=== PATIENT | female | born 1995 | race Caucasian/White ===

== ENCOUNTER 2018-09-24 09:02 | Day surgery (SDC) | payer OTHER ==
[~2018-09-24 09:02] MED LIST: Dexamethasone 4 MG/ML 5 ML MDV ONE; Glycopyrrolate 0.2 MG/ML SDV ONE; Lactated Ringers 1,000 ML IV SCH; Midazolam 1 MG/ML 2 ML SDV ONE; Neostigmine Methylsulfate 1 MG/ML 5 ML Syringe ONE; Ondansetron 4 MG/2 ML SDV ONE; Propofol 200 MG/20 ML SDV ONE; Rocuronium 100 MG/10 ML Syringe ONE; fentaNYL 250 MCG/5 ML SDV ONE
--- NOTE | 2018-09-24 10:08 | PCM.PREANE ---
Preanesthetic Assessment - Anesthesia/Transfusion/Family Hx Anesthesia History: Prior Anesthesia Without Reaction Family History of Anesthesia Reaction: No Transfusion History: No Prior Transfusion(s) Intubation History: Unknown - Review of Systems General: No Symptoms Pulmonary: No Symptoms Cardiovascular: No Symptoms Gastrointestinal: No Symptoms Neurological: No Symptoms Other: Reports: None - Physical Assessment Height: 5 ft 2 in Weight: 49.442 kg ASA Class: 2 Mental Status: Alert & Oriented x3 Airway Class: Mallampati = 1 Dentition: Reports: Dentures (upper) Thyro-Mental Finger Breadths: 3 Mouth Opening Finger Breadths: 3 ROM/Head Extension: Full Lungs: Clear to Auscultation, Normal Respiratory Effort Cardiovascular: Regular Rate, Regular Rhythm - Lab Values: Laboratory Last Values WBC 5.65 K/uL (4.0-11.0) 09/24/18 09:32 RBC 4.67 M/uL (4.30-5.90) 09/24/18 09:32 Hgb 14.1 g/dL (12.0-16.0) 09/24/18 09:32 Hct 42.4 % (36.0-46.0) 09/24/18 09:32 MCV 90.8 fL (80.0-98.0) 09/24/18 09:32 MCH 30.2 pg (27.0-32.0) 09/24/18 09:32 MCHC 33.3 g/dL (31.0-37.0) 09/24/18 09:32 RDW Std Deviation 42.9 fl (28.0-62.0) 09/24/18 09:32 RDW Coeff of Rosa 13 % (11.0-15.0) 09/24/18 09:32 Plt Count 256 K/uL (150-400) 09/24/18 09:32 MPV 12.00 fL (7.40-12.00) 09/24/18 09:32 Nucleated RBC % 0.0 /100WBC 09/24/18 09:32 Nucleated RBCs # 0 K/uL 09/24/18 09:32 Urine HCG, Qual NEGATIVE (NEGATIVE) 09/24/18 09:16 - Allergies Allergies/Adverse Reactions: Allergies Allergy/AdvReac Type Severity Reaction Status Date / Time No Known Allergies Allergy Verified 09/21/18 12:54 - Blood Blood Available: No - Anesthesia Plan Pre-Op Medication Ordered: None - Acknowledgements Anesthesia Type Planned: MAC Pt an Appropriate Candidate for the Planned Anesthesia: Yes Alternatives and Risks of Anesthesia Discussed w Pt/Guardian: Yes Pt/Guardian Understands and Agrees with Anesthesia Plan: Yes PreAnesthesia Questionnaire HEENT History: Reports: Allergic Rhinitis, Other (See Below) Other HEENT History: wears glasses, top denture Cardiovascular History: Reports: None Respiratory History: Reports: None Gastrointestinal History: Reports: None Genitourinary History: Reports: None [employer] SERVICE History: Reports: Other (See Below) (h/o ovarian cyst) Musculoskeletal History: Reports: None Neurological History: Reports: None Psychiatric History: Reports: None Endocrine/Metabolic History: Reports: None Hematologic History: Reports: None Immunologic History: Reports: None Oncologic (Cancer) History: Reports: None Dermatologic History: Reports: None - Past Surgical History Head Surgeries/Procedures: Reports: None HEENT Surgical History: Reports: Oral Surgery Cardiovascular Surgical History: Reports: None Respiratory Surgical History: Reports: None GI Surgical History: Reports: None Female Surgical History: Reports: None Endocrine Surgical History: Reports: None Neurological Surgical History: Reports: None Musculoskeletal Surgical History: Reports: None Oncologic Surgical History: Reports: None Dermatological Surgical History: Reports: None - SUBSTANCE USE Smoking Status *Q: Current Some Day Smoker Tobacco Use Within Last Twelve Months: Cigarettes Recreational Drug Use History: No - HOME MEDS Home Medications: Home Meds Cetirizine [ZyrTEC] 10 mg PO ASDIRECTED PRN 09/21/18 [History] PNV95/Ferrous Fumarate/FA [ Vitamin Tablet] 1 tab PO DAILY 09/21/18 [ History] - CURRENT (IN HOUSE) MEDS Current Meds: Current Medications Lactated Ringer's (Ringers, Lactated) 1,000 mls @ 125 mls/hr IV ASDIRECTED [facility] Discontinued Medications Dexamethasone (Dexamethasone) Confirm Administered Dose 20 mg .ROUTE .STK-MED ONE Stop: 09/24/18 07:38 Fentanyl (Sublimaze) Confirm Administered Dose 250 mcg .ROUTE .STK-MED ONE Stop: 09/24/18 07:37 Glycopyrrolate (Robinul) Confirm Administered Dose 0.4 mg .ROUTE .STK-MED ONE Stop: 09/24/18 07:39 Acetaminophen (Ofirmev) Confirm Administered Dose 100 mls @ as directed IV .STK- MED ONE Stop: 09/24/18 07:28 Lidocaine HCl (Xylocaine-Mpf 1%) Confirm Administered Dose 5 mls @ as directed .ROUTE .STK-MED ONE Stop: 09/24/18 07:38 Midazolam HCl (Versed 1 Mg/Ml) Confirm Administered Dose 2 mg .ROUTE .STK-MED ONE Stop: 09/24/18 07:37 Neostigmine Methylsulfate (Neostigmine) Confirm Administered Dose 5 mg .ROUTE .STK-MED ONE Stop: 09/24/18 07:39 Ondansetron HCl (Zofran) Confirm Administered Dose 4 mg .ROUTE .STK-MED ONE Stop: 09/24/18 07:38 Propofol (Diprivan 20 Ml) Confirm Administered Dose 200 mg .ROUTE .STK-MED ONE Stop: 09/24/18 07:37 Rocuronium [place] (Zemuron) Confirm Administered Dose 100 mg .ROUTE .STK-MED ONE Stop: 09/24/18 07:39 Succinylcholine Chloride (Succinylcholine Chloride) Confirm Administered Dose 200 mg .ROUTE .STK-MED ONE Stop: 09/24/18 07:39
[2018-09-24] MEDS ORDERED: Sugammadex Sodium 200 MG/2 ML VIAL ONE (10:46)
[2018-09-24] MEDS ORDERED: Octyl 2-Cyanoacrylate 1 Tube ONE (11:10)
[2018-09-24] MEDS ORDERED: Fluorescein 5 ML Vial ONE (11:10)
[2018-09-24] MEDS ORDERED: Furosemide 40 MG/4 ML VIAL ONE (11:51)
[2018-09-24] MEDS ORDERED: fentaNYL 100 MCG/2 ML SDV ONE (12:18)
[2018-09-24] MEDS ORDERED: Ketorolac 30 MG/ML SDV ONE (12:25)
[2018-09-24] MEDS: fentaNYL 100 MCG/2 ML SDV IVPUSH PRN ×2 (12:40→12:46)
--- NOTE | 2018-09-24 13:00 | PCM.OPNOTE ---
- General Post-Op/Procedure Note Date of Surgery/Procedure: 09/24/18 Operative Procedure(s): dignostic Laparascopy bilat salpengectomy Post-Op Diagnosis: Same Anesthesia Technique: General ET Tube Primary Surgeon: Beni Givens EBL in mLs: 50 Complications: None Condition: Good Free Text/Narrative:: Intake & Output 09/23/18 09/24/18 09/24/18 22:59 06:59 14:59 Intake Total 1400 Balance 1400
--- NOTE | 2018-09-24 13:02 | PCM.DCSUM1 ---
Discharge Summary - Hospital Course Diagnosis: Stroke: No - Discharge Data Discharge Date: 09/24/18 Discharge Disposition: Home, Self-Care 01 Condition: Good - Patient Summary/Data Operative Procedure(s) Performed: dignostic Laparascopy bilat salpengectomy - Patient Instructions Diet: Usual Diet as Tolerated Activity: As Tolerated Driving: Do Not Drive Showering/Bathing: May Shower Notify Provider of: Fever, Increased Pain, Nausea and/or Vomiting - Discharge Plan Home Medications: Home Meds Cetirizine [ZyrTEC] 10 mg PO ASDIRECTED PRN 09/21/18 [History] PNV95/Ferrous Fumarate/FA [ Vitamin Tablet] 1 tab PO DAILY 09/21/18 [ History] - Discharge Summary/Plan Comment DC Time >30 min.: Yes - General Info Date of Service: 09/24/18 Functional Status: Reports: Pain Controlled - Review of Systems General: Reports: No Symptoms HEENT: Reports: No Symptoms Pulmonary: Reports: No Symptoms Cardiovascular: Reports: No Symptoms Gastrointestinal: Reports: No Symptoms Genitourinary: Reports: No Symptoms Musculoskeletal: Reports: No Symptoms Skin: Reports: No Symptoms Neurological: Reports: No Symptoms Psychiatric: Reports: No Symptoms - Patient Data Vitals - Most Recent: Last Vital Signs Temp 36.1 C 09/24/18 12:19 Pulse 58 L 09/24/18 12:56 Resp 13 09/24/18 12:56 BP 98/50 L 09/24/18 12:56 Pulse Ox 98 09/24/18 12:56 Weight - Most Recent: 49.442 kg I&O - Last 24 hours: Intake & Output 09/23/18 09/24/18 09/24/18 22:59 06:59 14:59 Intake Total 1400 Balance 1400 Lab Results - Last 24 hrs: Laboratory Results - last 24 hr 09/24/18 09/24/18 Range/Units 09:16 09:32 WBC 5.65 (4.0-11.0) K/uL RBC 4.67 (4.30-5.90) M/uL Hgb 14.1 (12.0-16.0) g/dL Hct 42.4 (36.0-46.0) % MCV 90.8 (80.0-98.0) fL MCH 30.2 (27.0-32.0) pg MCHC 33.3 (31.0-37.0) g/dL RDW Std Deviation 42.9 (28.0-62.0) fl RDW Coeff of Rosa 13 (11.0-15.0) % Plt Count 256 (150-400) K/uL MPV 12.00 (7.40-12.00) fL Nucleated RBC % 0.0 /100WBC Nucleated RBCs # 0 K/uL Urine HCG, Qual NEGATIVE (NEGATIVE) Med Orders - Current: Current Medications Fentanyl (Sublimaze) 50 mcg IVPUSH Q5M PRN PRN Reason: Pain (severe 7-10) Stop: 09/24/18 14:00 Last Admin: 09/24/18 12:46 Dose: 50 mcg Lactated Ringer's (Ringers, Lactated) 1,000 mls @ 125 mls/hr IV ASDIRECTED [facility] Last Admin: 09/24/18 09:50 Dose: 125 mls/hr Discontinued Medications Dexamethasone (Dexamethasone) Confirm Administered Dose 20 mg .ROUTE .STK-MED ONE Stop: 09/24/18 07:38 Fentanyl (Sublimaze) Confirm Administered Dose 250 mcg .ROUTE .STK-MED ONE Stop: 09/24/18 07:37 Fentanyl (Sublimaze) Confirm Administered Dose 100 mcg .ROUTE .STK-MED ONE Stop: 09/24/18 12:19 Fluorescein Sodium (Ak-Fluor) Confirm Administered Dose 5 ml .ROUTE .STK-MED ONE Stop: 09/24/18 11:11 Furosemide (Lasix) Confirm Administered Dose 40 mg .ROUTE .STK-MED ONE Stop: 09/24/18 11:52 Glycopyrrolate (Robinul) Confirm Administered Dose 0.4 mg .ROUTE .STK-MED ONE Stop: 09/24/18 07:39 Acetaminophen (Ofirmev) Confirm Administered Dose 100 mls @ as directed IV .STK- MED ONE Stop: 09/24/18 07:28 Lidocaine HCl (Xylocaine-Mpf 1%) Confirm Administered Dose 5 mls @ as directed .ROUTE .STK-MED ONE Stop: 09/24/18 07:38 Ketorolac Tromethamine (Toradol) Confirm Administered Dose 30 mg .ROUTE .STK- MED ONE Stop: 09/24/18 12:26 Midazolam HCl (Versed 1 Mg/Ml) Confirm Administered Dose 2 mg .ROUTE .STK-MED ONE Stop: 09/24/18 07:37 Neostigmine Methylsulfate (Neostigmine) Confirm Administered Dose 5 mg .ROUTE .STK-MED ONE Stop: 09/24/18 07:39 Octyl Cyanoacrylate (Dermabond Advance) Confirm Administered Dose 1 applic .ROUTE .STK-MED ONE Stop: 09/24/18 11:11 Ondansetron HCl (Zofran) Confirm Administered Dose 4 mg .ROUTE .STK-MED ONE Stop: 09/24/18 07:38 Propofol (Diprivan 20 Ml) Confirm Administered Dose 200 mg .ROUTE .STK-MED ONE Stop: 09/24/18 07:37 Rocuronium [place] (Zemuron) Confirm Administered Dose 100 mg .ROUTE .STK-MED ONE Stop: 09/24/18 07:39 Succinylcholine Chloride (Succinylcholine Chloride) Confirm Administered Dose 200 mg .ROUTE .STK-MED ONE Stop: 09/24/18 07:39 Sugammadex Sodium (Bridion) Confirm Administered Dose 200 mg .ROUTE .STK-MED ONE Stop: 09/24/18 10:47 - Exam General: Reports: Alert, Oriented HEENT: Reports: Pupils Equal, Pupils Reactive, EOMI, Mucous Membr. Moist/[place] Neck: Reports: Supple Lungs: Reports: Clear to Auscultation, Normal Respiratory Effort Cardiovascular: Reports: Regular Rate, Regular Rhythm GI/Abdominal Exam: Normal Bowel Sounds, Soft, Non-Tender, No Organomegaly, No Distention, No Abnormal Bruit, No Mass, Pelvis Stable (Female) Exam: Normal External Exam, Normal Speculum Exam, Normal Bimanual Exam Rectal (Female) Exam: Normal Exam, Normal Rectal Tone Back Exam: Reports: Normal Inspection, Full Range of Motion Extremities: Normal Inspection, Normal Range of Motion, Non-Tender, No Pedal Edema, Normal Capillary Refill Skin: Reports: Warm, Dry, Intact Wound/Incisions: Reports: Healing Well Neurological: Reports: No New Focal Deficit Psy/Mental Status: Reports: Alert, Normal Affect, Normal Mood
--- NOTE | 2018-09-24 13:24 | PCM48HPAN ---
Post Anesthesia Note - EVALUATION WITHIN 48HRS OF ANESTHETIC Vital Signs in Normal Range: Yes Patient Participated in Evaluation: Yes Respiratory Function Stable: Yes Airway Patent: Yes Cardiovascular Function Stable: Yes Hydration Status Stable: Yes Pain Control Satisfactory: Yes Nausea and Vomiting Control Satisfactory: Yes Mental Status Recovered: Yes Resp Rate: 13 - COMMENTS/OBSERVATIONS Free Text/Narrative:: No anesthesia problems
--- NOTE | 2018-09-24 17:36 | OR ---
SURGEON: Beni Givens MD DATE OF PROCEDURE: PREOPERATIVE DIAGNOSES: 1. Tubal occlusion. 2. Bilateral hydrosalpinx. POSTOPERATIVE DIAGNOSES: 1. Tubal occlusion. 2. Bilateral hydrosalpinx. OPERATION PERFORMED: Multiple puncture diagnostic laparoscopy, bilateral salpingectomy. PRIMARY SURGEON: Beni Givens MD. INDUSTRIAL G[employer] SERVICER: OR hilda. ANESTHESIA: General endotracheal intubation. ESTIMATED BLOOD LOSS: Less than 50 mL. COMPLICATIONS: None. INDICATION: This is a 23-year-old patient, nulliparous. She has previous history of pelvic inflammatory disease and bilateral tubal occlusion. She is scheduled to have IVF in November and based on the recommendation of her infertility doctor and IVF doctors, she was referred back to have bilateral salpingectomy. PROCEDURE IN DETAIL: The patient was brought to the OR, properly identified. After adequate level of anesthesia, the patient was placed in lithotomy position, prepped and draped in sterile fashion as usual. A short weighted speculum was placed in the vagina and then the Senseonicska manipulator placed in the uterus for manipulation. Straight catheter was used to enter the bladder. The operation shifted abdominally. Stab wound done beneath the umbilicus. The Veress needle was placed in the peritoneal cavity and that cavity insufflated with 6 L of carbon dioxide. A skin incision was done to accommodate 5 mm trocar and 5 mm scope through it. Inspection of the pelvic organs revealed the above-mentioned dictated finding. A 10/12 trocar was placed in the left iliac fossa and 5 mm trocar in the right iliac fossa. The operation started by identifying the tube, and after lysing the adhesion using Surya Harmonic scapula, the mesosalpinx was coagulated, transected, and the tubes amputated as close to the uterus as possible. Once this got accomplished, both tubes removed and inspection of the operative field showed no oozing, no bleeding, then the procedure is ended. Instrument and sponge count were correct. The patient tolerated the procedure well and went to recovery room in stable general condition. ZEENAT / BERYL /[id number]
== END 2018-09-24 13:45 | disposition home or self-care (01) ==
LOC: MW.SDS 09:02
PROVIDERS: ATTEND Obstetrics & Gynecology
DX: N97.1 Female infertility of tubal origin (principal); N70.11 Chronic salpingitis; N73.6 Female pelvic peritoneal adhesions (postinfective); Z87.891 Personal history of nicotine dependence; Z79.899 Other long term (current) drug therapy
CPT/HCPCS: 36415; 58700; 81025; 85027; A9270; J0131; J0330; J1100; J1885; J1940; J2001; J2250; J2405; J2704; J3010; J3490; J7120; 00840; 88305

== ENCOUNTER 2019-04-19 09:24 | Emergency (ER) | payer OTHER ==
--- NOTE | 2019-04-19 09:57 | EDM.PDOC ---
ED HPI GENERAL MEDICAL PROBLEM - General Chief Complaint: CERTIFIED GENETIC COUNSELOR Problem Stated Complaint: UNKNOWN WEEKS PREG W/SPOTTING Time Seen by Provider: 04/19/19 09:51 Source of Information: Reports: Patient History Limitations: Reports: No Limitations - History of Present Illness INITIAL COMMENTS - FREE TEXT/NARRATIVE: HISTORY AND PHYSICAL: History of present illness: Patient is a 23-year-old female who presents to the ED today with concern of spotting and lower abdominal pain in early . Patient states she had IVF a few weeks ago at the beginning of March and has had confirmed positive tests in [place] as well as confirmed positive hCG quant levels. Patient states she believes her last hCG quant level was around 8000 and this was about a week ago according to patient. Patient states she had an appointment this morning with Dr. Givens for her first routine appointment but was called by the clinic canceling this appointment. Patient states she went to the bathroom and had some clotting and bright red blood when she wiped. Patient states she has not had to wear a pad for bleeding but does have some bright red blood when she wipes. Patient states she is also having lower abdominal cramping. Patient denies any health history or any other symptoms or concerns. Patient denies fever, chills, chest pain, shortness of breath, or cough. Denies headache, neck stiff ness, change in vision, syncope, or near syncope. Denies nausea, vomiting, diarrhea, constipation, or dysuria. Has not noted any blood in urine or stool. Patient has been eating and drinking appropriately. Review of systems: As per history of present illness and below otherwise all systems reviewed and negative. Past medical history: As per history of present illness and as reviewed below otherwise noncontributory. Surgical history: As per history of present illness and as reviewed below otherwise noncontributory. Social history: See social history for further information Family history: As per history of present illness and as reviewed below otherwise noncontributory. Physical exam: General: Patient is alert, oriented, and in no acute distress. Patient sitting comfortably on exam table. HEENT: Atraumatic, normocephalic, pupils equal and reactive bilaterally, negative for conjunctival pallor or scleral icterus, mucous membranes moist, TMs normal bilaterally, throat clear, neck supple, nontender, trachea midline. No drooling or trismus noted. No meningeal signs. No hot potato voice noted. Lungs: Clear to auscultation, breath sounds equal bilaterally, chest nontender. Heart: S1S2, regular rate and rhythm without overt murmur Abdomen: Soft, nondistended, nontender. Negative for masses or hepatosplenomegaly. Negative for costovertebral tenderness. Pelvis: Stable nontender. Genitourinary: Deferred. Rectal: Deferred. Skin: Intact, warm, dry. No lesions or rashes noted. Extremities: Atraumatic, negative for cords or calf pain. Neurovascular unremarkable. Neuro: Awake, alert, oriented. Cranial nerves II through XII unremarkable. Cerebellum unremarkable. Motor and sensory unremarkable throughout. Exam nonfocal. Notes: Discussed importance for follow-up with an CERTIFIED GENETIC COUNSELOR women's health provider. Voices understanding and is agreeable to plan of care. Denies any further questions or concerns at this time. Diagnostics: UA, Uhcg, CBC,CMP, Blood type/Rh, TVUS, HcgQuant Therapeutics: None Prescription: None Impression: Threatened Plan: 1. Please start and/or continue to take your vitamin with folic acid once daily. 2. Pelvic rest until cleared by your OBGYN (no tampons, sex, etc...) 3. Tylenol as needed for pain management. This is safe to use in . 4. Follow up with your CERTIFIED GENETIC COUNSELOR as discussed. Return to the ED as needed and as discussed. Definitive disposition and diagnosis as appropriate pending reevaluation and review of above. - Related Data Allergies Allergy/AdvReac Type Severity Reaction Status Date / Time No Known Allergies Allergy Verified 04/19/19 09:50 Home Meds: Home Meds Cetirizine [ZyrTEC] 10 mg PO ASDIRECTED PRN 09/21/18 [History] Pnv No.95/Ferrous Fum/Folic AC [ Vitamin Tablet] 1 tab PO DAILY [History] Aspirin 81 mg PO ASDIRECTED 04/19/19 [History] Past Medical History HEENT History: Reports: Allergic Rhinitis, Other (See Below) Other HEENT History: wears glasses, top denture Cardiovascular History: Reports: None Respiratory History: Reports: None Gastrointestinal History: Reports: None Genitourinary History: Reports: None CERTIFIED GENETIC COUNSELOR History: Reports: Other (See Below) (h/o ovarian cyst) Musculoskeletal History: Reports: None Neurological History: Reports: None Psychiatric History: Reports: None Endocrine/Metabolic History: Reports: None Hematologic History: Reports: None Immunologic History: Reports: None Oncologic (Cancer) History: Reports: None Dermatologic History: Reports: None - Past Surgical History Head Surgeries/Procedures: Reports: None HEENT Surgical History: Reports: Oral Surgery Cardiovascular Surgical History: Reports: None Respiratory Surgical History: Reports: None GI Surgical History: Reports: None Female Surgical History: Reports: None Endocrine Surgical History: Reports: None Neurological Surgical History: Reports: None Musculoskeletal Surgical History: Reports: None Oncologic Surgical History: Reports: None Dermatological Surgical History: Reports: None ED ROS GENERAL - Review of Systems Review Of Systems: Comprehensive ROS is negative, except as noted in HPI. ED EXAM, GENERAL - Physical Exam Exam: See Below (see dictation) Course - Vital Signs Last Recorded V/S: Last Vital Signs Temp 97.3 F 04/19/19 09:52 Pulse 92 04/19/19 09:52 Resp 16 04/19/19 09:52 BP 106/73 04/19/19 09:52 Pulse Ox 99 04/19/19 09:52 - Orders/Labs/Meds Labs: Laboratory Tests 04/19/19 04/19/19 04/19/19 Range/Units 09:56 09:56 10:20 WBC 7.94 (4.0-11.0) K/uL RBC 4.43 (4.30-5.90) M/uL Hgb 13.5 (12.0-16.0) g/dL Hct 40.3 (36.0-46.0) % MCV 91.0 (80.0-98.0) fL MCH 30.5 (27.0-32.0) pg MCHC 33.5 (31.0-37.0) g/dL RDW Std Deviation 45.7 (28.0-62.0) fl RDW Coeff of Rosa 14 (11.0-15.0) % Plt Count 237 (150-400) K/uL MPV 12.20 H (7.40-12.00) fL Neut % (Auto) 64.8 (48.0-80.0) % Lymph % (Auto) 27.1 (16.0-40.0) % [place] % (Auto) 5.3 (0.0-15.0) % Eos % (Auto) 2.5 (0.0-7.0) % Baso % (Auto) 0.3 (0.0-1.5) % Neut # (Auto) 5.2 (1.4-5.7) K/uL Lymph # (Auto) 2.2 (0.6-2.4) K/uL [place] # (Auto) 0.4 (0.0-0.8) K/uL Eos # (Auto) 0.2 (0.0-0.7) K/uL Baso # (Auto) 0.0 (0.0-0.1) K/uL Nucleated RBC % 0.0 /100WBC Nucleated RBCs # 0 K/uL Sodium (136-145) mmol/L Potassium (3.5-5.1) mmol/L Chloride (98-107) mmol/L Carbon Dioxide (21.0-32.0) mmol/L BUN (7.0-18.0) mg/dL Creatinine (0.6-1.0) mg/dL Est Cr Clr Drug Dosing mL/min Estimated GFR (MDRD) ml/min Glucose (74-106) mg/dL Calcium (8.5-10.1) mg/dL Total Bilirubin (0.2-1.0) mg/dL AST (15-37) IU/L ALT (14-63) IU/L Alkaline Phosphatase (46-116) U/L Total Protein (6.4-8.2) g/dL Albumin (3.4-5.0) g/dL Globulin (2.6-4.0) g/dL Albumin/Globulin Ratio (0.9-1.6) HCG, Quant mIU/mL Urine Color YELLOW Urine Appearance HAZY Urine pH 5.5 (5.0-8.0) Ur Specific [place] >= 1.030 (1.001-1.035) Urine Protein NEGATIVE (NEGATIVE) mg/dL Urine Glucose (UA) NEGATIVE (NEGATIVE) mg/dL Urine Ketones NEGATIVE (NEGATIVE) mg/dL Urine Occult Blood MODERATE H (NEGATIVE) Urine Nitrite NEGATIVE (NEGATIVE) Urine Bilirubin NEGATIVE (NEGATIVE) Urine Urobilinogen 0.2 (<2.0) EU/dL Ur Leukocyte Esterase NEGATIVE (NEGATIVE) Urine RBC 1-3 (0-2/HPF) Urine WBC 3-5 (0-5/HPF) Ur Epithelial Cells MODERATE (NONE-FEW) Urine Bacteria FEW (NEGATIVE) Urine Mucus MODERATE (NONE-MOD) Urine HCG, Qual POSITIVE (NEGATIVE) Blood Type 04/19/19 04/19/19 Range/Units 10:20 10:20 WBC (4.0-11.0) K/uL RBC (4.30-5.90) M/uL Hgb (12.0-16.0) g/dL Hct (36.0-46.0) % MCV (80.0-98.0) fL MCH (27.0-32.0) pg MCHC (31.0-37.0) g/dL RDW Std Deviation (28.0-62.0) fl RDW Coeff of Rosa (11.0-15.0) % Plt Count (150-400) K/uL MPV (7.40-12.00) fL Neut % (Auto) (48.0-80.0) % Lymph % (Auto) (16.0-40.0) % [place] % (Auto) (0.0-15.0) % Eos % (Auto) (0.0-7.0) % Baso % (Auto) (0.0-1.5) % Neut # (Auto) (1.4-5.7) K/uL Lymph # (Auto) (0.6-2.4) K/uL [place] # (Auto) (0.0-0.8) K/uL Eos # (Auto) (0.0-0.7) K/uL Baso # (Auto) (0.0-0.1) K/uL Nucleated RBC % /100WBC Nucleated RBCs # K/uL Sodium 137 (136-145) mmol/L Potassium 3.8 (3.5-5.1) mmol/L Chloride 104 (98-107) mmol/L Carbon Dioxide 24.3 (21.0-32.0) mmol/L BUN 7 (7.0-18.0) mg/dL Creatinine 0.8 (0.6-1.0) mg/dL Est Cr Clr Drug Dosing 77.22 mL/min Estimated GFR (MDRD) > 60.0 ml/min Glucose 84 (74-106) mg/dL Calcium 8.5 (8.5-10.1) mg/dL Total Bilirubin 0.3 (0.2-1.0) mg/dL AST 17 (15-37) IU/L ALT 24 (14-63) IU/L Alkaline Phosphatase 35 L (46-116) U/L Total Protein 7.0 (6.4-8.2) g/dL Albumin 3.5 (3.4-5.0) g/dL Globulin 3.5 (2.6-4.0) g/dL Albumin/Globulin Ratio 1.0 (0.9-1.6) HCG, Quant 27111.0 mIU/mL Urine Color Urine Appearance Urine pH (5.0-8.0) Ur Specific [place] (1.001-1.035) Urine Protein (NEGATIVE) mg/dL Urine Glucose (UA) (NEGATIVE) mg/dL Urine Ketones (NEGATIVE) mg/dL Urine Occult Blood (NEGATIVE) Urine Nitrite (NEGATIVE) Urine Bilirubin (NEGATIVE) Urine Urobilinogen (<2.0) EU/dL Ur Leukocyte Esterase (NEGATIVE) Urine RBC (0-2/HPF) Urine WBC (0-5/HPF) Ur Epithelial Cells (NONE-FEW) Urine Bacteria (NEGATIVE) Urine Mucus (NONE-MOD) Urine HCG, Qual (NEGATIVE) Blood Type O POSITIVE Departure - Departure Time of Disposition: 11:57 Disposition: Home, Self-Care 01 Clinical Impression: Threatened - Discharge Information Referrals: Beni Givens MD [Primary Care Provider] - Forms: ED Department Discharge Additional Instructions: The following information is given to patients seen in the emergency department who are being discharged to home. This information is to outline your options for follow-up care. We provide all patients seen in our emergency department with a follow-up referral. The need for follow-up, as well as the timing and circumstances, are variable depending upon the specifics of your emergency department visit. If you don't have a primary care physician on staff, we will provide you with a referral. We always advise you to contact your personal physician following an emergency department visit to inform them of the circumstance of the visit and for follow-up with them and/or the need for any referrals to a consulting specialist. The emergency department will also refer you to a specialist when appropriate. This referral assures that you have the opportunity for follow-up care with a specialist. All of these measure are taken in an effort to provide you with optimal care, which includes your follow-up. Under all circumstances we always encourage you to contact your private physician who remains a resource for coordinating your care. When calling for follow-up care, please make the office aware that this follow-up is from your recent emergency room visit. If for any reason you are refused follow-up, please contact the [facility] Emergency Department at and asked to speak to the emergency department charge nurse. [facility] [address] [place] [address] [facility] [address] [place] [id number] [facility] [address] [place] [phone] 1. Please start and/or continue to take your vitamin with folic acid once daily. 2. Pelvic rest until cleared by your OBGYN (no tampons, sex, etc...) 3. Tylenol as needed for pain management. This is safe to use in . 4. Follow up with your CERTIFIED GENETIC COUNSELOR in the next 1-2 days. Return to the ED as needed and as discussed. Sepsis Event Note - Evaluation Sepsis Screening Result: No Definite Risk - Focused Exam Vital Signs: Vital Signs Temp Pulse Resp BP Pulse Ox 04/19/19 09:52 97.3 F 92 16 106/73 99 Date Exam was Performed: 04/19/19 Time Exam was Performed: 11:57
[2019-04-19 11:16] LABS: BLOOD UREA NITROGEN,BUN 7 mg/dL (7.0-18.0); CARBON DIOXIDE,CO2 24.3 mmol/L (21.0-32.0); CHLORIDE,CL 104 mmol/L (98-107); GLUCOSE RANDOM 84 mg/dL (74-106); POTASSIUM,K 3.8 mmol/L (3.5-5.1); SODIUM,NA 137 mmol/L (136-145)
--- NOTE | 2019-04-19 11:53 | US ---
First trimester obstetrical ultrasound: Multiple real-time images were obtained transvaginally. Comparison: No previous study for current . Dates: Current ultrasound: JYOTI 12/15/19, gestational age 5 weeks 5 days Single intrauterine gestational sac is seen. Yolk sac and questionable pole is noted. No subchorionic hemorrhage is seen. Maternal ovaries appear within normal limits. Measurements: Mean sac diameter: 1.06 cm - 5 weeks 5 days Heart rate: None measured at this time Impression: 1. Single intrauterine gestation. Dates as noted above. 2. No heart activity is seen possibly relating to early gestational age. Recommend repeat study in 11 days (if patient does not miscarry). Diagnostic code #2 This report was dictated in Mountain Standard Time
== END 2019-04-19 12:04 | disposition home or self-care (01) ==
LOC: MW.ED 09:24
DX: O20.0 Threatened abortion (principal); Z79.82 Long term (current) use of aspirin
CPT/HCPCS: 36415; 76801; 76801-26; 80053; 81001; 81025; 84702; 85025; 86900; 86901; 99283; 99284-25

== ENCOUNTER 2019-11-09 21:07 | Observation (INO) | payer MEDICAID ==
[2019-11-09] MEDS ORDERED: Terbutaline 1 MG/ML SDV ONE (22:02)
[2019-11-09] MEDS: Lactated Ringers 1,000 ML IV ONE ×2 (22:05→23:21)
[2019-11-09] MEDS: Terbutaline 1 MG/ML SDV SUBCUT ONE ×2 (22:06→23:20)
[2019-11-09] MEDS ORDERED: Lactated Ringers 1,000 ML IV SCH (23:45)
== END 2019-11-10 00:45 | disposition home or self-care (01) ==
LOC: MW.OBCHECK 21:07 → MW.OB 21:08 → MW.OBCHECK 21:38
PROVIDERS: ADMIT Obstetrics & Gynecology; ATTEND Obstetrics & Gynecology
DX: O47.03 False labor before 37 completed weeks of gestation, third trimester (principal); Z3A.31 31 weeks gestation of pregnancy
CPT/HCPCS: 59025; 81003; 96360; 96361; 96372; G0378; J3105; J7120

== ENCOUNTER 2019-12-03 18:34 | Inpatient (IN) | payer MEDICAID ==
[2019-12-03] MEDS ORDERED: Misoprostol 25 MCG (1/4 of 100 MCG) Tab ONE (19:38)
[2019-12-03] MEDS ORDERED: Ampicillin 2 GM AdvVial IV ONE (19:39)
[2019-12-03] MEDS ORDERED: Sodium Chloride 0.9% 100 ML ONE (19:40)
[2019-12-03] MEDS ORDERED: Butorphanol 1 MG/ML SDV ONE (19:41)
[2019-12-03] MEDS ORDERED: Carboprost Tromethamine 250 MCG/1 ML Amp IM PRN (20:04)
[2019-12-03] MEDS ORDERED: Methylergonovine 0.2 MG/1 ML Amp IM PRN (20:04)
[2019-12-03] MEDS ORDERED: Tranexamic Acid 1,000 MG in Sodium Chloride 0.9% 100 ML IV PRN (20:04)
[2019-12-03] MEDS ORDERED: Lidocaine 1% 50 ML MDV INJECT PRN (20:04)
[2019-12-03] MEDS ORDERED: Sodium Chloride 0.9% 2.5 ML Syringe FLUSH PRN (20:04)
[2019-12-03] MEDS ORDERED: Butorphanol 1 MG/ML SDV IVPUSH PRN (20:04)
[2019-12-03] MEDS ORDERED: Misoprostol 200 MCG Tab PO PRN (20:04)
[2019-12-03] MEDS ORDERED: Nalbuphine 10 MG/1 ML Vial IVPUSH PRN (20:04)
[2019-12-03] MEDS ORDERED: Sodium Chloride 0.9% 10 ML SDV IV PRN (20:04)
[2019-12-03] MEDS ORDERED: Water For Irrigation,Sterile 1,000 ML Container IRR PRN (20:04)
[2019-12-03] MEDS ORDERED: Sodium Chloride 0.9% 10 ML Syringe FLUSH PRN (20:04)
[2019-12-03] MEDS ORDERED: Oxytocin/0.9 % Sodium Chloride 30 UNIT/500 ML BAG IV SCH (20:15)
[2019-12-03] MEDS: Lactated Ringers 1,000 ML IV SCH ×2 (20:20→22:38)
--- NOTE | 2019-12-03 20:33 | PCM.LDHP ---
L&D History of Present Illness - General Date of Service: 12/03/19 Admit Problem/Dx: Patient Status Order with Admit Dx/Problem 12/03/19 18:35 Patient Status [ADT] Routine 12/03/19 20:04 Patient Status [ADT] Routine Admission Diagnosis/Problem Admission Diagnosis/Problem 12/03/19 20:33 presenting to L&D with complaints of leaking fluid; amnisure positive. 38 weeks (JYOTI: 12/17/19); GBS positive, O+, Rubella immune. Source of Information: Patient History Limitations: Reports: No Limitations - Related Data Allergies/Adverse Reactions: Allergies Allergy/AdvReac Type Severity Reaction Status Date / Time No Known Allergies Allergy Verified 12/03/19 18:51 Home Medications: Home Meds Cetirizine [ZyrTEC] 10 mg PO ASDIRECTED PRN 09/21/18 [History] Pnv No.95/Ferrous Fum/Folic AC [ Vitamin Tablet] 1 tab PO DAILY 09/21/18 [History] Aspirin 81 mg PO ASDIRECTED 04/19/19 [History] Past Medical History HEENT History: Reports: Allergic Rhinitis, Other (See Below) Other HEENT History: wears glasses, top denture Cardiovascular History: Reports: None Respiratory History: Reports: None Gastrointestinal History: Reports: None Genitourinary History: Reports: None STONE [place]IM[place]ON History: Reports: Other (See Below) (h/o ovarian cyst) Musculoskeletal History: Reports: None Neurological History: Reports: None Psychiatric History: Reports: None Endocrine/Metabolic History: Reports: None Hematologic History: Reports: None Immunologic History: Reports: None Oncologic (Cancer) History: Reports: None Dermatologic History: Reports: None - Infectious Disease History Infectious Disease History: Reports: None - Past Surgical History Head Surgeries/Procedures: Reports: None HEENT Surgical History: Reports: Oral Surgery Cardiovascular Surgical History: Reports: None Respiratory Surgical History: Reports: None GI Surgical History: Reports: None Female Surgical History: Reports: None Endocrine Surgical History: Reports: None Neurological Surgical History: Reports: None Musculoskeletal Surgical History: Reports: None Oncologic Surgical History: Reports: None Dermatological Surgical History: Reports: None Social & Family History - Family History Family Medical History: Noncontributory - Caffeine Use Caffeine Use: Reports: None H&P Review of Systems - Review of Systems: Review Of Systems: See Below General: Reports: No Symptoms HEENT: Reports: No Symptoms Pulmonary: Reports: No Symptoms Cardiovascular: Reports: No Symptoms Gastrointestinal: Reports: No Symptoms Genitourinary: Reports: No Symptoms Musculoskeletal: Reports: No Symptoms Skin: Reports: No Symptoms Psychiatric: Reports: No Symptoms Neurological: Reports: No Symptoms Hematologic/Lymphatic: Reports: No Symptoms Immunologic: Reports: No Symptoms L&D Exam - Exam Exam: See Below - Vital Signs Weight: 143 lb - OB Specific Heart Rate (FHR) Variability: Moderate (6-25 bmp) - Ndiaye Score Ndiaye Score Cervix Position: Midposition Ndiaye Score Consistency: Soft Ndiaye Score Effacement: 31-50% Ndiaye Score Dilation: 1-2 cm Ndiaye Score Infant's Station: -2 Ndiaye Score Total: 6 - Exam General: Alert, Oriented, Cooperative Lungs: Normal Respiratory Effort Cardiovascular: Regular Rate, Regular Rhythm GI/Abdominal Exam: Soft, Non-Tender Genitourinary: Deferred Back Exam: Normal Inspection, Full Range of Motion Extremities: Normal Inspection, Normal Range of Motion, Non-Tender, No Pedal Edema Skin: Warm, Dry, Intact Neurological: Strength Equal Bilateral, Normal Speech, Normal Tone Psychiatric: Alert, Normal Affect, Normal Mood - Patient Data Lab Results Last 24 hrs: Laboratory Results - last 24 hr 12/03/19 Range/Units 18:45 Membrane Rupture POSITIVE - Problem List (1) Supervision of normal IUP (intrauterine ) in primigravida SNOMED Code(s): 31762808, 718567050, 456414329, 379903693 ICD Code: Z34.00 - ENCNTR FOR SUPRVSN OF NORMAL FIRST , UNSP TRIMESTER Status: Acute Priority: High Current Visit: Yes Qualifiers: Trimester: third trimester Qualified Code(s): Z34.03 - Encounter for supervision of normal first , third trimester Problem List Initiated/Reviewed/Updated: Yes Orders Last 24hrs: Active Orders 24 hr Category Date Time Status Patient Status [ADT] Routine ADT 12/03/19 18:35 Active Patient Status [ADT] Routine ADT 12/03/19 20:04 Active Heart Tones [RC] CONTINUOUS Care 12/03/19 20:04 Active Non Stress Test [RC] PER UNIT ROUTINE Care 12/03/19 18:52 Active Non Stress Test [RC] PER UNIT ROUTINE Care 12/03/19 20:04 Active May Shower [RC] ASDIRECTED Care 12/03/19 20:04 Active Notify Provider [RC] PRN Care 12/03/19 20:04 Active Up ad Alecia [RC] ASDIRECTED Care 12/03/19 18:52 Active Up ad Alecia [RC] ASDIRECTED Care 12/03/19 20:04 Active Vaginal Exam [RC] Click to Edit Care 12/03/19 18:52 Active Vaginal Exam [RC] PRN Care 12/03/19 20:04 Active Vital Signs [RC] PER UNIT ROUTINE Care 12/03/19 18:52 Active Vital Signs [RC] PER UNIT ROUTINE Care 12/03/19 20:04 Active CBC W/O DIFF,HEMOGRAM [HEME] Routine Lab 12/03/19 20:04 Ordered CORONAVIRUS COVID-19 PCR PHL Stat Lab 12/03/19 20:06 Ordered RPR (SYPHILIS SERO) W/ RFLX [REF] Routine Lab 12/03/19 20:04 Ordered TYPE AND SCREEN [BBK] Routine Lab 12/03/19 20:04 Ordered Butorphanol [Stadol] Med 12/03/19 20:04 Active 1 mg IVPUSH Q1H PRN Carboprost Tromethamine [Hemabate DS] Med 12/03/19 20:04 Active 250 mcg IM ASDIRECTED PRN Lactated Ringers [Ringers, Lactated] 1,000 ml Med 12/03/19 20:15 Active IV ASDIRECTED Lidocaine 1% [Xylocaine 1%] Med 12/03/19 20:04 Active 50 ml INJECT ONETIME PRN Methylergonovine [Methergine] Med 12/03/19 20:04 Active 0.2 mg IM ASDIRECTED PRN Nalbuphine [Nubain] Med 12/03/19 20:04 Active 10 mg IVPUSH Q1H PRN Oxytocin/0.9 % Sodium Chloride [Oxytocin 30 Unit/500 ML Med 12/03/19 20:15 Active -NS] 30 unit in 500 ml IV TITRATE Sodium Chloride 0.9% [Normal Saline] Med 12/03/19 20:04 Active 10 ml IV ASDIRECTED PRN Sodium Chloride 0.9% [Saline Flush] Med 12/03/19 20:04 Active 10 ml FLUSH ASDIRECTED PRN Sodium Chloride 0.9% [Saline Flush] Med 12/03/19 20:04 Active 2.5 ml FLUSH ASDIRECTED PRN Tranexamic Acid [Cyklokapron] 1,000 mg Med 12/03/19 20:04 Active Sodium Chloride 0.9% [Normal Saline] 100 ml IV ONETIME Water For Irrigation,Sterile [Sterile Water for Med 12/03/19 20:04 Active Irrigation] 1,000 ml IRR ASDIRECTED PRN miSOPROStoL [Cytotec] Med 12/03/19 20:04 Active 200 mcg PO ONETIME PRN Scalp Electrode [WOMSER] Per Unit Routine Oth 12/03/19 20:04 Ordered Peripheral IV Insertion Adult [OM.PC] Routine Oth 12/03/19 20:04 Ordered Resuscitation Status Routine Resus Stat 12/03/19 18:52 Ordered Medication Orders Butorphanol Tartrate (Stadol) 1 mg IVPUSH Q1H PRN PRN Reason: Pain Carboprost Tromethamine (Hemabate Ds) 250 mcg IM ASDIRECTED PRN PRN Reason: Post Hemorrhage Lactated Ringer's (Ringers, Lactated) 1,000 mls @ 150 mls/hr IV ASDIRECTED MOSHE Oxytocin/Sodium Chloride (Oxytocin 30 Unit/500 Ml-Ns) 30 unit in 500 mls @ 500 mls/hr IV TITRATE MOSHE Tranexamic Acid 1,000 mg/ (Sodium Chloride) 110 mls @ 660 mls/hr IV ONETIME PRN PRN Reason: Bleeding Lidocaine HCl (Xylocaine 1%) 50 ml INJECT ONETIME PRN PRN Reason: Laceration repair Methylergonovine Maleate (Methergine) 0.2 mg IM ASDIRECTED PRN PRN Reason: Post Hemorrhage Misoprostol (Cytotec) 200 mcg PO ONETIME PRN PRN Reason: Post Hemorrhage Nalbuphine HCl (Nubain) 10 mg IVPUSH Q1H PRN PRN Reason: Pain (severe 7-10) Sodium Chloride (Saline Flush) 10 ml FLUSH ASDIRECTED PRN PRN Reason: Keep Vein Open Sodium Chloride (Saline Flush) 2.5 ml FLUSH ASDIRECTED PRN PRN Reason: Keep Vein Open Sodium Chloride (Normal Saline) 10 ml IV ASDIRECTED PRN PRN Reason: IV Use Sterile Water (Sterile Water For Irrigation) 1,000 ml IRR ASDIRECTED PRN PRN Reason: delivery Assessment/Plan Comment:: Admit A: presenting to L&D with complaints of leaking fluid; amnisure positive. GBS positive. Not chuck. 38 weeks (JYOTI: 12/17/19) O+, Rubella immune. P: Admit. Cytotec to pitocin. Epidural PRN. Dr. Givens updated.
[2019-12-03] MEDS ORDERED: Bupivicaine/fentaNYL/NS 250 ML ONE (21:46)
[2019-12-03] MEDS ORDERED: fentaNYL 100 MCG/2 ML SDV ONE (21:47)
--- NOTE | 2019-12-03 22:14 | PCM.PREANE ---
Preanesthetic Assessment - Anesthesia/Transfusion/Family Hx Anesthesia History: Prior Anesthesia Without Reaction Family History of Anesthesia Reaction: No Transfusion History: No Prior Transfusion(s) Intubation History: Unknown - Review of Systems General: No Symptoms Pulmonary: No Symptoms Cardiovascular: No Symptoms Gastrointestinal: Abdominal Pain (labor pain) Neurological: No Symptoms Other: Reports: None - Physical Assessment Height: 5 ft 1 in Weight: 64.864 kg ASA Class: 2 Mental Status: Alert & Oriented x3 Airway Class: Mallampati = 1 Dentition: Reports: Dentures (upper) Thyro-Mental Finger Breadths: 3 Mouth Opening Finger Breadths: 3 ROM/Head Extension: Full Lungs: Clear to Auscultation, Normal Respiratory Effort Cardiovascular: Regular Rate, Regular Rhythm - Lab Values: Laboratory Last Values WBC 20.48 K/uL (4.0-11.0) H 12/03/19 20:20 RBC 4.20 M/uL (4.30-5.90) L 12/03/19 20:20 Hgb 13.3 g/dL (12.0-16.0) 12/03/19 20:20 Hct 40.4 % (36.0-46.0) 12/03/19 20:20 MCV 96.2 fL (80.0-98.0) 12/03/19 20:20 MCH 31.7 pg (27.0-32.0) 12/03/19 20:20 MCHC 32.9 g/dL (31.0-37.0) 12/03/19 20:20 RDW Std Deviation 48.6 fl (28.0-62.0) 12/03/19 20:20 RDW Coeff of Rosa 14 % (11.0-15.0) 12/03/19 20:20 Plt Count 149 K/uL (150-400) L 12/03/19 20:20 MPV 13.80 fL (7.40-12.00) H 12/03/19 20:20 Nucleated RBC % 0.0 /100WBC 12/03/19 20:20 Nucleated RBCs # 0 K/uL 12/03/19 20:20 Membrane Rupture POSITIVE 12/03/19 18:45 COVID-19 (LYNSEY) NEGATIVE (NEGATIVE) 12/03/19 20:27 Blood Type O POSITIVE 12/03/19 20:20 Antibody Screen NEGATIVE 12/03/19 20:20 - Allergies Allergies/Adverse Reactions: Allergies Allergy/AdvReac Type Severity Reaction Status Date / Time No Known Allergies Allergy Verified 12/03/19 18:51 - Blood Blood Available: No - Anesthesia Plan Pre-Op Medication Ordered: None - Acknowledgements Anesthesia Type Planned: Epidural Pt an Appropriate Candidate for the Planned Anesthesia: Yes Alternatives and Risks of Anesthesia Discussed w Pt/Guardian: Yes Pt/Guardian Understands and Agrees with Anesthesia Plan: Yes PreAnesthesia Questionnaire HEENT History: Reports: Allergic Rhinitis, Other (See Below) Other HEENT History: wears glasses, top denture Cardiovascular History: Reports: None Respiratory History: Reports: None Gastrointestinal History: Reports: None Genitourinary History: Reports: None SEED TESTER History: Reports: , Other (See Below) ( h/o ovarian cyst) Musculoskeletal History: Reports: None Neurological History: Reports: None Psychiatric History: Reports: None Endocrine/Metabolic History: Reports: None Hematologic History: Reports: None Immunologic History: Reports: None Oncologic (Cancer) History: Reports: None Dermatologic History: Reports: None - Infectious Disease History Infectious Disease History: Reports: None - Past Surgical History Head Surgeries/Procedures: Reports: None HEENT Surgical History: Reports: Oral Surgery Cardiovascular Surgical History: Reports: None Respiratory Surgical History: Reports: None GI Surgical History: Reports: None Female Surgical History: Reports: None, Other (See Below) (bilateral salpyngectomy) Endocrine Surgical History: Reports: None Neurological Surgical History: Reports: None Musculoskeletal Surgical History: Reports: None Oncologic Surgical History: Reports: None Dermatological Surgical History: Reports: None - SUBSTANCE USE Smoking Status *Q: Current Every Day Smoker (1/2 ppd) - HOME MEDS Home Medications: Home Meds Cetirizine [ZyrTEC] 10 mg PO ASDIRECTED PRN 09/21/18 [History] Pnv No.95/Ferrous Fum/Folic AC [ Vitamin Tablet] 1 tab PO DAILY 09/21/18 [History] Aspirin 81 mg PO ASDIRECTED 04/19/19 [History] - CURRENT (IN HOUSE) MEDS Current Meds: Current Medications Butorphanol Tartrate (Stadol) 1 mg IVPUSH Q1H PRN PRN Reason: Pain Last Admin: 12/03/19 21:08 Dose: 1 mg Documented by: Carboprost Tromethamine (Hemabate Ds) 250 mcg IM ASDIRECTED PRN PRN Reason: Post Hemorrhage Lactated Ringer's (Ringers, Lactated) 1,000 mls @ 150 mls/hr IV ASDIRECTED [facility] Last Admin: 12/03/19 20:20 Dose: 150 mls/hr Documented by: Oxytocin/Sodium Chloride (Oxytocin 30 Unit/500 Ml-Ns) 30 unit in 500 mls @ 500 mls/hr IV TITRATE [facility] Tranexamic Acid 1,000 mg/ (Sodium Chloride) 110 mls @ 660 mls/hr IV ONETIME PRN PRN Reason: Bleeding Lidocaine HCl (Xylocaine 1%) 50 ml INJECT ONETIME PRN PRN Reason: Laceration repair Methylergonovine Maleate (Methergine) 0.2 mg IM ASDIRECTED PRN PRN Reason: Post Hemorrhage Misoprostol (Cytotec) 200 mcg PO ONETIME PRN PRN Reason: Post Hemorrhage Nalbuphine HCl (Nubain) 10 mg IVPUSH Q1H PRN PRN Reason: Pain (severe 7-10) Sodium Chloride (Saline Flush) 10 ml FLUSH ASDIRECTED PRN PRN Reason: Keep Vein Open Sodium Chloride (Saline Flush) 2.5 ml FLUSH ASDIRECTED PRN PRN Reason: Keep Vein Open Sodium Chloride (Normal Saline) 10 ml IV ASDIRECTED PRN PRN Reason: IV Use Sterile Water (Sterile Water For Irrigation) 1,000 ml IRR ASDIRECTED PRN PRN Reason: delivery Discontinued Medications Ampicillin Sodium (Ampicillin) Confirm Administered Dose 2 gm IV .STK-MED ONE Stop: 12/03/19 19:40 Last Admin: 12/03/19 20:20 Dose: 2 gm Documented by: Butorphanol Tartrate (Stadol) Confirm Administered Dose 1 mg .ROUTE .STK-MED ONE Stop: 12/03/19 19:42 Last Admin: 12/03/19 20:15 Dose: 1 mg Documented by: Fentanyl (Sublimaze) Confirm Administered Dose 100 mcg .ROUTE .STK-MED ONE Stop: 12/03/19 21:48 Sodium Chloride (Normal Saline) Confirm Administered Dose 100 mls @ as directed .ROUTE .STK-MED ONE Stop: 12/03/19 19:41 Fentanyl/Bupivacaine HCl (Fentanyl/Bupivacaine/Ns 2 Mcg-0.125% 250 Ml) Confirm Administered Dose 250 mls @ as directed .ROUTE .STK-MED ONE Stop: 12/03/19 21:47 Misoprostol (Cytotec) Confirm Administered Dose 25 mcg .ROUTE .STK-MED ONE Stop: 12/03/19 19:39
[2019-12-04] MEDS: Ampicillin 1 GM in Sodium Chloride 0.9% 50 ML IV SCH ×4 (00:10→12:08)
[2019-12-04] MEDS ORDERED: Oxytocin/0.9 % Sodium Chloride 30 UNIT/500 ML BAG IV SCH ×2 (01:00)
[2019-12-04] MEDS ORDERED: Acetaminophen 500 MG Tab PO ONE ×2 (02:33→13:53)
[2019-12-04] MEDS ORDERED: Acetaminophen 500 MG Tab ONE (02:37)
[2019-12-04] MEDS ORDERED: fentaNYL 100 MCG/2 ML SDV ONE ×2 (13:41→13:50)
[2019-12-04] MEDS: Lactated Ringers 1,000 ML IV SCH ×2 (13:44→18:22)
[2019-12-04] MEDS ORDERED: Ropivacaine HCl/PF 100 ML ONE (13:50)
--- NOTE | 2019-12-04 14:03 | PCM.PRNOTE ---
- Free Text/Narrative Note: Anes Note Epidural bag change A new bag of 100 cc 0.2% ropivicaine with 1 mcg / cc fentanyl added was placed. Rate is 8 cc hr with 6 cc q 20 min prn bolus. A sitting dose was also administered at this time for complaints in inadquate pain control and alos reporting of sciatic leg pain as bay descends into the pe lvis. Sitting dose was 6 cc 2% lido with epi plus 100 mg fentnayl in slow divided doses. Time with patient [id number] Melecio Silva COMMUNITY SERVICE TECHNICIAN
[2019-12-04] MEDS ORDERED: Docusate Sodium 100 MG Cap PO PRN (15:33)
[2019-12-04] MEDS ORDERED: Bisacodyl 10 MG Supp RECTAL PRN (15:33)
[2019-12-04] MEDS ORDERED: Witch Hazel Medicated Pads 40/Jar TOP PRN (15:33)
[2019-12-04] MEDS ORDERED: Acetaminophen 500 MG Tab PO PRN (15:33)
[2019-12-04] MEDS ORDERED: oxyCODONE 5 MG Tab PO PRN (15:33)
[2019-12-04] MEDS ORDERED: Lanolin 100% Cream 7 GM Tube TOP PRN (15:33)
[2019-12-04] MEDS ORDERED: Ibuprofen 800 MG Tab PO PRN (15:33)
[2019-12-04] MEDS ORDERED: Benzocaine/Menthol 20%-0.5% Spray 78 GM Cannister TOP PRN (15:33)
[2019-12-04] MEDS ORDERED: Ibuprofen 400 MG Tab PO PRN (15:33)
[2019-12-04] MEDS ORDERED: Hydrocortisone 2.5% Crm 30 GM Tube TOP PRN (16:31)
[2019-12-04] MEDS: Ampicillin/Sulbactam Na 1.5 GM in Sodium Chloride 0.9% 50 ML IV SCH (18:23)
[2019-12-05] MEDS: Acetaminophen 500 MG Tab PO PRN ×2 (00:14→12:18)
[2019-12-05] MEDS: Ampicillin/Sulbactam Na 1.5 GM in Sodium Chloride 0.9% 50 ML IV SCH ×2 (00:15→05:57)
--- NOTE | 2019-12-05 08:42 | PCM48HPAN ---
Post Anesthesia Note - EVALUATION WITHIN 48HRS OF ANESTHETIC Vital Signs in Normal Range: Yes Patient Participated in Evaluation: Yes Respiratory Function Stable: Yes Airway Patent: Yes Cardiovascular Function Stable: Yes Hydration Status Stable: Yes Pain Control Satisfactory: Yes Nausea and Vomiting Control Satisfactory: Yes Mental Status Recovered: Yes Vital Signs: Last Vital Signs Temp 36.9 C 12/05/19 01:00 Pulse 102 H 12/05/19 01:00 Resp 15 12/05/19 01:00 BP 111/71 12/05/19 01:00 Pulse Ox 98 12/05/19 01:00
--- NOTE | 2019-12-05 11:40 | PCM.DCSUM1 ---
Discharge Summary - Hospital Course Free Text/Narrative:: Discharge home. Follow up in the clinic in one week. Follow up again in the clinic in 6 weeks for routine visit. Diagnosis: Stroke: No Modified Fajardo Scale: No Symptoms at All Modified Fajardo Scale Score: 0 - Discharge Data Discharge Date: 12/05/19 Discharge Disposition: Home, Self-Care 01 Condition: Good - Referral to Home Health Primary Care Physician: Blair Walker MD - Discharge Diagnosis/Problem(s) (1) Supervision of normal IUP (intrauterine ) in primigravida SNOMED Code(s): 76066803, [id number], [id number], [id number] ICD Code: Z34.00 - ENCNTR FOR SUPRVSN OF NORMAL FIRST , UNSP TRIMESTER Status: Acute Priority: High Current Visit: Yes Qualifiers: Trimester: third trimester Qualified Code(s): Z34.03 - Encounter for supervision of normal first , third trimester - Patient Instructions Diet: Regular Diet as Tolerated, Drink 8-10+ Glasses/Day Activity: As Tolerated Driving: May Drive Today Showering/Bathing: May Shower Wound/Incision Care: Keep Operative Site/Wound Site Clean and Dry Notify Provider of: Fever, Increased Pain, Swelling and Redness, Drainage, Nausea and/or Vomiting - Discharge Plan *PRESCRIPTION DRUG MONITORING PROGRAM REVIEWED*: Not Applicable *COPY OF PRESCRIPTION DRUG MONITORING REPORT IN PATIENT FELA: Not Applicable Prescriptions/Med Rec: Amoxicillin 500 mg PO TID 7 Days #21 tablet Ferrous Sulfate 325 mg PO DAILY #30 tablet Ibuprofen [Motrin] 800 mg PO Q6H PRN #90 tablet PRN Reason: Pain Home Medications: Home Meds Cetirizine [ZyrTEC] 10 mg PO ASDIRECTED PRN 09/21/18 [History] Pnv No.95/Ferrous Fum/Folic AC [ Vitamin Tablet] 1 tab PO DAILY 09/21/18 [History] Aspirin 81 mg PO ASDIRECTED 04/19/19 [History] Amoxicillin 500 mg PO TID 7 Days #21 tablet 12/05/19 [Rx] Ferrous Sulfate 325 mg PO DAILY #30 tablet 12/05/19 [Rx] Ibuprofen [Motrin] 800 mg PO Q6H PRN #90 tablet 12/05/19 [Rx] Oxygen Therapy Mode: Room Air - Discharge Summary/Plan Comment DC Time >30 min.: Yes - General Info Date of Service: 12/05/19 Admission Dx/Problem (Free Text: Patient Status Order with Admit Dx/Problem 12/03/19 18:35 Patient Status [ADT] Routine 12/03/19 20:04 Patient Status [ADT] Routine Admission Diagnosis/Problem Admission Diagnosis/Problem 12/03/19 20:33 presenting to L&D with complaints of leaking fluid; amnisure positive. 38 weeks (JYOTI: 12/17/19); GBS positive, O+, Rubella immune. Functional Status: Reports: Pain Controlled, Tolerating Diet, Ambulating, Urinating - Review of Systems General: Reports: No Symptoms HEENT: Reports: No Symptoms Pulmonary: Reports: No Symptoms Cardiovascular: Reports: No Symptoms Gastrointestinal: Reports: No Symptoms Genitourinary: Reports: No Symptoms Musculoskeletal: Reports: No Symptoms Skin: Reports: No Symptoms Neurological: Reports: No Symptoms Psychiatric: Reports: No Symptoms - Patient Data Vitals - Most Recent: Last Vital Signs Temp 96.6 F L 12/05/19 08:45 Pulse 78 12/05/19 08:45 Resp 18 12/05/19 08:45 BP 108/63 12/05/19 08:45 Pulse Ox 98 12/05/19 08:45 Weight - Most Recent: 143 lb Lab Results - Last 24 hrs: Laboratory Results - last 24 hr 12/05/19 Range/Units 05:55 WBC 28.04 H (4.0-11.0) K/uL RBC 2.51 L (4.30-5.90) M/uL Hgb 8.0 L (12.0-16.0) g/dL Hct 24.2 L (36.0-46.0) % MCV 94.4 (80.0-98.0) fL MCH 31.5 (27.0-32.0) pg MCHC 33.3 (31.0-37.0) g/dL RDW Std Deviation 47.1 (28.0-62.0) fl RDW Coeff of Rosa 14 (11.0-15.0) % Plt Count 126 L (150-400) K/uL MPV 13.40 H (7.40-12.00) fL Nucleated RBC % 0.0 /100WBC Nucleated RBCs # 0 K/uL Med Orders - Current: Current Medications Acetaminophen (Tylenol Extra Strength) 500 mg PO Q4H PRN PRN Reason: Pain Acetaminophen (Tylenol Extra Strength) 1,000 mg PO Q4H PRN PRN Reason: Pain Last Admin: 12/05/19 00:14 Dose: 1,000 mg Documented by: Benzocaine/Menthol (Dermoplast Pain Relief 20%-0.5% Albin) 0 gm TOP ASDIRECTED PRN PRN Reason: Perineal Comfort Measure Last Admin: 12/04/19 18:28 Dose: 1 can Documented by: Bisacodyl (Dulcolax) 10 mg RECTAL ONETIME PRN PRN Reason: Constipation Docusate Sodium (Colace) 100 mg PO BID PRN PRN Reason: Constipation Emollient Ointment (Lansinoh Hpa) 0 gm TOP ASDIRECTED PRN PRN Reason: Sore Nipples Hydrocortisone (Proctozone-Hc 2.5% Crm) 0 gm TOP ASDIRECTED PRN PRN Reason: Hemorrhoids Last Admin: 12/04/19 18:29 Dose: 1 tube Documented by: Ampicillin Sodium/Sulbactam (Sodium 1.5 gm/ Sodium Chloride) 50 mls @ 150 mls/hr IV Q6H [facility] Last Admin: 12/05/19 05:57 Dose: 150 mls/hr Documented by: Ibuprofen (Motrin) 400 mg PO Q4H PRN PRN Reason: Pain Ibuprofen (Motrin) 800 mg PO Q6H PRN PRN Reason: Pain Last Admin: 12/05/19 05:53 Dose: 800 mg Documented by: Oxycodone HCl (Oxycodone) 5 mg PO Q2H PRN PRN Reason: Pain Witch Yuliya (Tucks) 1 pad TOP ASDIRECTED PRN PRN Reason: comfort care Last Admin: 12/04/19 18:29 Dose: 1 tub Documented by: Discontinued Medications Acetaminophen (Tylenol Extra Strength) 1,000 mg PO ONETIME ONE Stop: 12/04/19 02:34 Last Admin: 12/04/19 02:41 Dose: 1,000 mg Documented by: Acetaminophen (Tylenol Extra Strength) Confirm Administered Dose 1,000 mg .ROUTE .STK-MED ONE Stop: 12/04/19 02:38 Last Admin: 12/04/19 14:15 Dose: 1,000 mg Documented by: Acetaminophen (Tylenol Extra Strength) 1,000 mg PO ONETIME ONE Stop: 12/04/19 13:54 Last Admin: 12/04/19 14:26 Dose: Not Given Documented by: Ampicillin Sodium (Ampicillin) Confirm Administered Dose 2 gm IV .STK-MED ONE Stop: 12/03/19 19:40 Last Admin: 12/03/19 20:20 Dose: 2 gm Documented by: Butorphanol Tartrate (Stadol) Confirm Administered Dose 1 mg .ROUTE .STK-MED ONE Stop: 12/03/19 19:42 Last Admin: 12/03/19 20:15 Dose: 1 mg Documented by: Butorphanol Tartrate (Stadol) 1 mg IVPUSH Q1H PRN PRN Reason: Pain Last Admin: 12/03/19 21:08 Dose: 1 mg Documented by: Carboprost Tromethamine (Hemabate Ds) 250 mcg IM ASDIRECTED PRN PRN Reason: Post Hemorrhage Fentanyl (Sublimaze) Confirm Administered Dose 100 mcg .ROUTE .STK-MED ONE Stop: 12/03/19 21:48 Last Admin: 12/04/19 14:30 Dose: Not Given Documented by: Fentanyl (Sublimaze) Confirm Administered Dose 100 mcg .ROUTE .STK-MED ONE Stop: 12/04/19 13:42 Last Admin: 12/04/19 14:30 Dose: Not Given Documented by: Fentanyl (Sublimaze) Confirm Administered Dose 100 mcg .ROUTE .STK-MED ONE Stop: 12/04/19 13:51 Last Admin: 12/04/19 14:31 Dose: Not Given Documented by: Sodium Chloride (Normal Saline) Confirm Administered Dose 100 mls @ as directed .ROUTE .STK-MED ONE Stop: 12/03/19 19:41 Last Admin: 12/04/19 14:29 Dose: Not Given Documented by: Lactated Ringer's (Ringers, Lactated) 1,000 mls @ 150 mls/hr IV ASDIRECTED [facility] Last Admin: 12/04/19 18:22 Dose: 150 mls/hr Documented by: Oxytocin/Sodium Chloride (Oxytocin 30 Unit/500 Ml-Ns) 30 unit in 500 mls @ 500 mls/hr IV TITRATE [facility] Tranexamic Acid 1,000 mg/ (Sodium Chloride) 110 mls @ 660 mls/hr IV ONETIME PRN PRN Reason: Bleeding Fentanyl/Bupivacaine HCl (Fentanyl/Bupivacaine/Ns 2 Mcg-0.125% 250 Ml) Confirm Administered Dose 250 mls @ as directed .ROUTE .MobeeAtaxion ONE Stop: 12/03/19 21:47 Last Admin: 12/04/19 14:30 Dose: Not Given Documented by: Ampicillin Sodium 1 gm/ Sodium (Chloride) 50 mls @ 100 mls/hr IV Q4H [facility] Last Admin: 12/04/19 12:08 Dose: 100 mls/hr Documented by: Oxytocin/Sodium Chloride (Oxytocin 30 Unit/500 Ml-Ns) 30 unit in 500 mls @ 2 mls/hr IV TITRATE [facility]; Protocol Last Infusion: 12/04/19 14:27 Dose: 12 munits/min, 12 mls/hr Documented by: Oxytocin/Sodium Chloride (Oxytocin 30 Unit/500 Ml-Ns) 30 unit in 500 mls @ 2 mls/hr IV TITRATE [facility]; Protocol Ropivacaine (Naropin 0.2%) Confirm Administered Dose 100 mls @ as directed .ROUTE .Charge Payment ONE Stop: 12/04/19 13:51 Last Admin: 12/04/19 14:31 Dose: Not Given Documented by: Lidocaine HCl (Xylocaine 1%) 50 ml INJECT ONETIME PRN PRN Reason: Laceration repair Methylergonovine Maleate (Methergine) 0.2 mg IM ASDIRECTED PRN PRN Reason: Post Hemorrhage Misoprostol (Cytotec) Confirm Administered Dose 25 mcg .ROUTE .Charge Payment ONE Stop: 12/03/19 19:39 Last Admin: 12/04/19 14:29 Dose: Not Given Documented by: Misoprostol (Cytotec) 200 mcg PO ONETIME PRN PRN Reason: Post Hemorrhage Nalbuphine HCl (Nubain) 10 mg IVPUSH Q1H PRN PRN Reason: Pain (severe 7-10) Sodium Chloride (Saline Flush) 10 ml FLUSH ASDIRECTED PRN PRN Reason: Keep Vein Open Sodium Chloride (Saline Flush) 2.5 ml FLUSH ASDIRECTED PRN PRN Reason: Keep Vein Open Sodium Chloride (Normal Saline) 10 ml IV ASDIRECTED PRN PRN Reason: IV Use Sterile Water (Sterile Water For Irrigation) 1,000 ml IRR ASDIRECTED PRN PRN Reason: delivery - Exam General: Reports: Alert, Oriented, Cooperative, No Acute Distress Lungs: Reports: Normal Respiratory Effort Cardiovascular: Reports: Regular Rate, Regular Rhythm GI/Abdominal Exam: Soft, Non-Tender (Female) Exam: Deferred Rectal (Female) Exam: Deferred Back Exam: Reports: Normal Inspection, Full Range of Motion Extremities: Normal Inspection, Normal Range of Motion, Non-Tender, Normal Capillary Refill Skin: Reports: Warm, Dry, Intact Wound/Incisions: Reports: Healing Well Neurological: Reports: No New Focal Deficit, Normal Gait, Normal Speech, Normal Tone Psy/Mental Status: Reports: Alert, Normal Affect, Normal Mood
[2019-12-05] MEDS ORDERED: STERILE SCH (11:45)
[2019-12-05] MEDS ORDERED: WATER FOR INJECTION SCH (11:45)
[2019-12-05] MEDS ORDERED: SULBACTAM NA SCH (11:45)
[2019-12-05] MEDS ORDERED: AMPICILLIN SCH (11:45)
--- NOTE | 2019-12-06 08:54 | OR ---
SURGEON: Beni Givens MD DATE OF PROCEDURE: 12/04/2019 Ms. Melida Mock is a primigravida. She is 24 years old. This is an IVF . She is followed in our clinic jointly by myself and the information technology assistant. She had no complication. Her GBS status was positive. She was admitted to Labor and Delivery at 38 weeks with spontaneous rupture of the membrane. The patient was having early labor and sporadic contraction. She was started on IV antibiotic as per protocol for GBS, and she was started on Cytotec to initiate labor. The patient responded to the Cytotec. She progressed to 4 to 5 cm and then she had epidural anesthesia for labor analgesia. She required Pitocin augmentation. Then, she became complete-complete, and she commenced to pushing. The patient during labor, she had fever; however, she was on antibiotic. The fever responded to Tylenol. The patient after pushing for 2-1/2 hours, she was exhausted, and she was unable to proceed. I was consulted for possible vacuum extraction. At the time of my arrival, the vital signs were stable of the patient. heart rate was category 1. Pelvic examination revealed that the fetus was vertex in an OA position and it was a +2 station when the patient pushed. After consulting with the patient and explaining the vacuum extraction, the parent consented for that. Then, Kiwi vacuum extraction was applied. With the patient pushing, I was able to deliver the fetus without any problem. Endoscopy Nurse was present at the time of the delivery because of the maternal fever. The fetus was delivered pink and the score was not available at the time of the dictation. The placenta had to be extracted manually because after waiting for about 15 minutes there was no release of the placenta and manual removal of placenta was performed by me without any problem. Estimated blood loss was 350 to 400 mL. There was first-degree laceration. It was repaired by Nurys Sloan, the certified nurse information technology assistant, with 3-0 Vicryl in layer. There was no complication in the delivery or the of this patient. ZEENAT / BERYL /[id number]
== END 2019-12-05 13:22 | disposition home or self-care (01) | DRG 807 ==
LOC: MW.OBCHECK 18:34 → MW.OB 18:35 → MW.OBCHECK 20:04 → OBSVTOIN 12-04 15:33 → MW.OB 12-04 21:39
PROVIDERS: ADMIT Obstetrics & Gynecology; ATTEND Obstetrics & Gynecology
PROC: 10D07Z6 Extraction of Products of Conception, Vacuum, Via Natural or Artificial Opening (ICD-10-PCS; principal; 2019-12-04)
PROC: 10907ZC Drainage of Amniotic Fluid, Therapeutic from Products of Conception, Via Natural or Artificial Opening (ICD-10-PCS; 2019-12-04)
PROC: 3E0P7VZ Introduction of Hormone into Female Reproductive, Via Natural or Artificial Opening (ICD-10-PCS; 2019-12-04)
PROC: 3E033VJ Introduction of Other Hormone into Peripheral Vein, Percutaneous Approach (ICD-10-PCS; 2019-12-04)
PROC: 0HQ9XZZ Repair Perineum Skin, External Approach (ICD-10-PCS; 2019-12-04)
PROC: 3E0R3BZ Introduction of Anesthetic Agent into Spinal Canal, Percutaneous Approach (ICD-10-PCS; 2019-12-04)
DX: O99.824 Streptococcus B carrier state complicating childbirth (principal); Z37.0 Single live birth; Z3A.38 38 weeks gestation of pregnancy; O70.0 First degree perineal laceration during delivery; Z11.59 Encounter for screening for other viral diseases
CPT/HCPCS: 36415; 51702; 59025; 59409; 84112; 85027; 86592; 86850; 86900; 86901; 88307; A9270-GY; J0290; J0295; J0595; J2590; J3010; J7050; J7120; U0002